=== PATIENT | female | born 1940 | race Caucasian/White ===

== ENCOUNTER 2023-03-25 00:34 | Emergency (ER) | payer MEDICARE, OTHER ==
[~2023-03-25] VITALS: Ht 157.5 cm; Wt 55.0 kg
[2023-03-25 00:59] LABS: BASO % 0.2 % (0.0-1.0); HEMATOCRIT 36.9 % (36.0-47.0); HEMOGLOBIN 12.3 g/dl (12.0-15.5); LYMPH # 0.4 10^3/uL (1.5-5.0); LYMPH % 3.4 % (24.0-44.0); MEAN CORPUSCULAR HEMOGLOBIN 30.7 pg (27.0-33.0); MEAN CORPUSCULAR HGB CONC 33.3 g/dl (32.0-36.5); MONO # 0.4 10^3/uL (0.0-0.8); MONO % 2.9 % (2.0-8.0); NEUTROPHILS # 11.7 10^3/uL (1.5-8.5); NEUTROPHILS % 93.2 % (36.0-66.0); PLATELET COUNT, AUTOMATED 257 10^3/uL (150-450); RED BLOOD COUNT 4.01 10^6/uL (4.00-5.40); WHITE BLOOD COUNT 12.5 10^3/uL (4.0-10.0)
[2023-03-25] MEDS ORDERED: hydrALAZINE 20MG/ML 1ML VIAL IV STA (01:13)
[2023-03-25 01:14] LABS: INR 1.28; PROTHROMBIN TIME 15.6 SECONDS (12.5-14.5)
[2023-03-25 01:15] LABS: PARTIAL THROMBOPLASTIN TIME 25.5 SECONDS (24.8-34.2)
[2023-03-25 01:22] VITALS: BP 180/105
[2023-03-25] MEDS: niCARdipine IV 40 MG in IV 1 EA IV SCH ×2 (01:24→01:47)
[2023-03-25 01:25] LABS: CALCIUM LEVEL 9.2 MG/DL (8.3-10.6); CK-MB VALUE MASS 2.6 NG/ML (<3.6); CREATININE FOR GFR 1.62 MG/DL (0.55-1.30); GLOMERULAR FILTRATION RATE 32.2 (>32); MB/CK RELATIVE INDEX 2.04 (< OR =4); POTASSIUM SERUM 4.6 MMOL/L (3.5-5.1)
[2023-03-25] MEDS ORDERED: TENECTEPLASE 50 MG KIT (TNKase) IVP ONE (01:30)
[2023-03-25 01:51] VITALS: BP 163/85; TEMP 98.1; O2SAT 93
[2023-03-25] MEDS ORDERED: NS 1,000 ML IV ONE (01:55)
[2023-03-25 01:57] VITALS: BP 153/60; TEMP 98; O2SAT 94
[2023-03-25 02:13] VITALS: BP 131/79; TEMP 97.9; O2SAT 94
[2023-03-25 02:30] VITALS: BP 131/77; TEMP 98; O2SAT 95
[2023-03-25] MEDS ORDERED: SODIUM CHLORIDE 0.9% INJ 10 ML SYR IV ONE ×2 (06:00)
[2023-03-26] MEDS ORDERED: UNRESOLVED CLARIFICATION ENTRY XX SCH (00:01)
== END 2023-03-25 02:37 | disposition short-term general hospital (02) ==
LOC: M ED 00:34
DX: I63.9 Cerebral infarction, unspecified (principal); I65.22 Occlusion and stenosis of left carotid artery; I66.9 Occlusion and stenosis of unspecified cerebral artery; G93.89 Other specified disorders of brain; I10 Essential (primary) hypertension
CPT/HCPCS: 70450; 70496; 70498; 71045; 80047; 80048; 82550; 82553; 84484; 85025; 85610; 85730; 87486; 87581; 87633; 87798; 93005; 93041; 94760; 96365; 96375; 99284; J0360; J3101

== ENCOUNTER → 2023-04-24 | Outpatient (REF) | payer SELFPAY ==
[2023-04-24 09:45] LABS: BASO # 0.1 10^3/uL (0.0-0.2); BASO % 0.5 % (0.0-1.0); EOS # 0.5 10^3/uL (0.0-0.5); EOS % 4.8 % (0.0-3.0); HEMATOCRIT 30.1 % (36.0-47.0); HEMOGLOBIN 9.8 g/dl (12.0-15.5); LYMPH # 0.7 10^3/uL (1.5-5.0); LYMPH % 6.5 % (24.0-44.0); MEAN CORPUSCULAR HEMOGLOBIN 31.3 pg (27.0-33.0); MEAN CORPUSCULAR HGB CONC 32.6 g/dl (32.0-36.5); MEAN CORPUSCULAR VOLUME 96.2 fl (80.0-96.0); MONO # 0.5 10^3/uL (0.0-0.8); MONO % 4.4 % (2.0-8.0); NEUTROPHILS % 83.2 % (36.0-66.0); PLATELET COUNT, AUTOMATED 411 10^3/uL (150-450); RED BLOOD COUNT 3.13 10^6/uL (4.00-5.40); WHITE BLOOD COUNT 10.8 10^3/uL (4.0-10.0)
[2023-04-24 10:18] LABS: ALBUMIN 1.6 G/DL (3.2-5.2); ALKALINE PHOSPHATASE 179 U/L (46-116); ALT/SGPT 14 U/L (7.0-40); AST/SGOT 38 U/L (<34); BILIRUBIN,TOTAL < 0.2 MG/DL (0.3-1.2); BLOOD UREA NITROGEN 36 MG/DL (9-23); CALCIUM LEVEL 9.1 MG/DL (8.3-10.6); CARBON DIOXIDE LEVEL 30 MMOL/L (20-31); CHLORIDE LEVEL 104 MMOL/L (98-107); CHOLESTEROL LEVEL 110 MG/DL (<200); CHOLESTEROL RISK RATIO 2.98 (<5); CREATININE FOR GFR 1.29 MG/DL (0.55-1.30); GLOMERULAR FILTRATION RATE 41.9 (>32); GLUCOSE, FASTING 131 MG/DL (74-106); HDL CHOLESTEROL 36.8 MG/DL (>40); IRON (FE) 48 UG/DL (50-170); LDL CHOLESTEROL 56.8 MG/DL (<100); NON-HDL-C 73.2 MG/DL; PERCENT SATURATION 20.2 % (13.2-45.0); POTASSIUM SERUM 4.6 MMOL/L (3.5-5.1); SODIUM LEVEL 137 MMOL/L (136-145); TOTAL IRON BINDING CAPACITY 238 UG/DL (250-425); TOTAL PROTEIN 4.9 G/DL (5.7-8.2); TRIGLYCERIDES LEVEL 82 MG/DL (<150)
[2023-04-24 10:20] LABS: FERRITIN 170.5 NG/ML (7.3-270.7)
== END ==
LOC: SKLAB4 07:51
PROVIDERS: ATTEND Nurse Practitioner Family
DX: I10 Essential (primary) hypertension (principal); E78.5 Hyperlipidemia, unspecified

== ENCOUNTER → 2023-05-01 | Outpatient (REF) ==
[2023-05-01 13:38] LABS: AMORPHOUS SEDIMENT LARGE (NEGATIVE); APPEARANCE, URINE TURBID (CLEAR); BACTERIA, URINE AUTO 3+ (NEGATIVE); BILIRUBIN, URINE AUTO NEGATIVE (NEGATIVE); BLOOD, URINE BLOOD 3+ (NEGATIVE); COLOR, URINE YELLOW (YELLOW); GLUCOSE, URINE (UA) AUTO NEGATIVE (NEGATIVE); KETONE, URINE AUTO NEGATIVE (NEGATIVE); LEUKOCYTE ESTERASE, URINE AUTO 2+ (NEGATIVE); MUCUS, URINE SMALL (NEGATIVE); NITRITE, URINE AUTO NEGATIVE (NEGATIVE); PROTEIN, URINE AUTO 2+ mg/dL (NEGATIVE); RBC, URINE AUTO 53 /HPF (0-3); SPECIFIC GRAVITY URINE AUTO 1.014 (1.002-1.035); SQUAMOUS EPITHELIAL CELL UR AU 0 /HPF (0-6); UROBILINOGEN, URINE AUTO 0.2 mg/dL (0.0-2.0); WBC, URINE AUTO TNTC /HPF (0-3)
== END ==
LOC: SKLAB4 12:06
PROVIDERS: ATTEND Nurse Practitioner Family
DX: R91.8 Other nonspecific abnormal finding of lung field (principal); R06.02 Shortness of breath; D72.829 Elevated white blood cell count, unspecified

== ENCOUNTER → 2023-05-01 | Outpatient (REF) ==
[2023-05-01 09:17] LABS: BASO % 0.3 % (0.0-1.0); EOS # 0.4 10^3/uL (0.0-0.5); EOS % 3.3 % (0.0-3.0); HEMATOCRIT 25.1 % (36.0-47.0); HEMOGLOBIN 8.3 g/dl (12.0-15.5); LYMPH # 0.7 10^3/uL (1.5-5.0); LYMPH % 5.4 % (24.0-44.0); MEAN CORPUSCULAR HEMOGLOBIN 31.6 pg (27.0-33.0); MEAN CORPUSCULAR HGB CONC 33.1 g/dl (32.0-36.5); MEAN CORPUSCULAR VOLUME 95.4 fl (80.0-96.0); MONO # 0.8 10^3/uL (0.0-0.8); NEUTROPHILS # 10.8 10^3/uL (1.5-8.5); NEUTROPHILS % 84.5 % (36.0-66.0); PLATELET COUNT, AUTOMATED 344 10^3/uL (150-450); RED BLOOD COUNT 2.63 10^6/uL (4.00-5.40); WHITE BLOOD COUNT 12.8 10^3/uL (4.0-10.0)
[2023-05-01 09:40] LABS: ALBUMIN 1.6 G/DL (3.2-5.2); BILIRUBIN,TOTAL 0.2 MG/DL (0.3-1.2); CALCIUM LEVEL 8.8 MG/DL (8.3-10.6); CREATININE FOR GFR 1.22 MG/DL (0.55-1.30); GLOMERULAR FILTRATION RATE 44.7 (>32); POTASSIUM SERUM 4.1 MMOL/L (3.5-5.1); TOTAL PROTEIN 4.7 G/DL (5.7-8.2)
== END ==
LOC: SKLAB4 09:41
PROVIDERS: ATTEND Nurse Practitioner Family
DX: R25.1 Tremor, unspecified (principal); D64.9 Anemia, unspecified; I48.91 Unspecified atrial fibrillation

== ENCOUNTER 2023-05-02 07:05 | Outpatient (CLI) | payer MEDICARE ==
[2023-05-02 07:37] VITALS: BP 144/76; TEMP 97.5; O2SAT 96
[2023-05-02 08:00] VITALS: BP 128/76; TEMP 97.7; O2SAT 98
[2023-05-02 09:12] VITALS: BP 132/86; TEMP 98; O2SAT 99
[2023-05-02 09:45] VITALS: BP 139/88; TEMP 97.4; O2SAT 97
[2023-05-02 11:00] VITALS: BP 156/88; TEMP 98; O2SAT 97
[2023-05-02 12:22] VITALS: BP 136/86; TEMP 98.2; O2SAT 98
== END 2023-05-02 11:18 ==
LOC: M INFU 07:05
PROVIDERS: ATTEND Nurse Practitioner Family
DX: D64.9 Anemia, unspecified (principal); R19.5 Other fecal abnormalities
CPT/HCPCS: 36430; 82270; P9016

== ENCOUNTER → 2023-05-03 | Outpatient (REF) ==
[2023-05-03 12:49] LABS: HEMATOCRIT 33.3 % (36.0-47.0); HEMOGLOBIN 11.2 g/dl (12.0-15.5); MEAN CORPUSCULAR HEMOGLOBIN 30.7 pg (27.0-33.0); MEAN CORPUSCULAR HGB CONC 33.6 g/dl (32.0-36.5); MEAN CORPUSCULAR VOLUME 91.2 fl (80.0-96.0); PLATELET COUNT, AUTOMATED 401 10^3/uL (150-450); RED BLOOD COUNT 3.65 10^6/uL (4.00-5.40); WHITE BLOOD COUNT 9.9 10^3/uL (4.0-10.0)
== END ==
LOC: SKLAB4 07:00
PROVIDERS: ATTEND Nurse Practitioner Family
DX: D64.9 Anemia, unspecified (principal)

== ENCOUNTER 2023-05-06 19:07 | Emergency (ER) | payer MEDICARE ==
[2023-05-06 20:43] LABS: CK-MB VALUE MASS 1.7 NG/ML (<3.6)
[2023-05-06 20:45] VITALS: BP 167/79
[2023-05-06 20:47] LABS: THYROID STIMULATING HORMONE 13.798 uIU/ML (0.55-4.78)
[2023-05-06 20:48] LABS: ALBUMIN 1.8 G/DL (3.2-5.2); ALKALINE PHOSPHATASE 199 U/L (46-116); ALT/SGPT 13 U/L (7.0-40); AST/SGOT 39 U/L (<34); BILIRUBIN,DIRECT < 0.1 MG/DL (<0.4); BILIRUBIN,TOTAL 0.2 MG/DL (0.3-1.2); BLOOD UREA NITROGEN 43 MG/DL (9-23); CALCIUM LEVEL 9.1 MG/DL (8.3-10.6); CARBON DIOXIDE LEVEL 27 MMOL/L (20-31); CHLORIDE LEVEL 96 MMOL/L (98-107); CPK CREATINE PHOSPHOKINASE 51 U/L (34-145); CREATININE FOR GFR 0.93 MG/DL (0.55-1.30); GLOMERULAR FILTRATION RATE > 60.0 (>32); GLUCOSE, FASTING 124 MG/DL (74-106); MB/CK RELATIVE INDEX 3.33 (< OR =4); POTASSIUM SERUM 4.6 MMOL/L (3.5-5.1); SODIUM LEVEL 127 MMOL/L (136-145); TOTAL PROTEIN 5.4 G/DL (5.7-8.2)
[2023-05-06 21:25] LABS: RSV AMPLIFICATION NEGATIVE (NEGATIVE)
[2023-05-06 21:27] LABS: BASO # 0.1 10^3/uL (0.0-0.2); BASO % 0.4 % (0.0-1.0); EOS # 0.4 10^3/uL (0.0-0.5); EOS % 3.3 % (0.0-3.0); HEMATOCRIT 32.6 % (36.0-47.0); HEMOGLOBIN 11.2 g/dl (12.0-15.5); LYMPH # 0.7 10^3/uL (1.5-5.0); LYMPH % 5.4 % (24.0-44.0); MEAN CORPUSCULAR HEMOGLOBIN 31.2 pg (27.0-33.0); MEAN CORPUSCULAR HGB CONC 34.4 g/dl (32.0-36.5); MEAN CORPUSCULAR VOLUME 90.8 fl (80.0-96.0); MONO % 7.1 % (2.0-8.0); NEUTROPHILS # 11.1 10^3/uL (1.5-8.5); NEUTROPHILS % 83.3 % (36.0-66.0); RED BLOOD COUNT 3.59 10^6/uL (4.00-5.40); WHITE BLOOD COUNT 13.4 10^3/uL (4.0-10.0)
[2023-05-06 21:28] LABS: PLATELET COUNT, AUTOMATED 550 10^3/uL (150-450)
[2023-05-06 21:51] LABS: FREE T4 0.99 NG/DL (0.89-1.76)
[2023-05-06] MEDS ORDERED: ISOVUE-370 76% 100ML VIAL As Ordered ONE (22:10)
[2023-05-06 22:32] LABS: PROCALCITONIN 0.26 ng/ml
[2023-05-06 22:53] LABS: CK-MB VALUE MASS 2.1 NG/ML (<3.6)
[2023-05-06 22:56] LABS: MB/CK RELATIVE INDEX 4.88 (< OR =4)
[2023-05-06 23:30] VITALS: TEMP 97.7; O2SAT 98
== END 2023-05-07 00:15 | disposition home or self-care (01) ==
LOC: M ED 19:07
DX: J98.11 Atelectasis (principal); I48.91 Unspecified atrial fibrillation; I49.3 Ventricular premature depolarization; E78.5 Hyperlipidemia, unspecified; K21.9 Gastro-esophageal reflux disease without esophagitis; Z86.79 Personal history of other diseases of the circulatory system; Z96.0 Presence of urogenital implants
CPT/HCPCS: 36415; 70450; 71045; 71275; 80048; 80076; 81001; 82550; 82553; 83605; 84145; 84439; 84443; 84484; 85025; 87086; 87631; 93005; 93041; 94760; 99285; Q9967

== ENCOUNTER → 2023-05-06 | Outpatient (REF) ==
[2023-05-06 17:12] LABS: VENOUS O2 SATURATION 99.3 % (60.0-80.0); VENOUS PARTIAL PRESSURE CO2 37.8 mmHg (38.0-50.0); VENOUS PARTIAL PRESSURE O2 156.9 mmHg (30.0-50.0); VENOUS PH 7.439 UNITS (7.330-7.430); VENOUS STANDARD HCO3 25.4 MMOL/L; VENOUS TOTAL CO2 26.2 MMOL/L (24.0-28.0)
[2023-05-06 17:43] LABS: ALBUMIN 1.6 G/DL (3.2-5.2); BILIRUBIN,TOTAL 0.2 MG/DL (0.3-1.2); CREATININE FOR GFR 0.97 MG/DL (0.55-1.30); GLOMERULAR FILTRATION RATE 58.2 (>32); POTASSIUM SERUM 4.3 MMOL/L (3.5-5.1); TOTAL PROTEIN 4.8 G/DL (5.7-8.2)
== END ==
LOC: SKLAB4 15:27
PROVIDERS: ATTEND Nurse Practitioner Family
DX: I10 Essential (primary) hypertension (principal)

== ENCOUNTER → 2023-05-06 | Outpatient (REF) | LOC: SKLAB4 15:03 | PROVIDERS: ATTEND Nurse Practitioner Family | DX: J90 Pleural effusion, not elsewhere classified (principal); I51.7 Cardiomegaly ==

== ENCOUNTER → 2023-05-06 | Outpatient (REF) ==
[2023-05-06 08:33] LABS: HEMATOCRIT 33.1 % (36.0-47.0); HEMOGLOBIN 11.1 g/dl (12.0-15.5); MEAN CORPUSCULAR HEMOGLOBIN 30.8 pg (27.0-33.0); MEAN CORPUSCULAR HGB CONC 33.5 g/dl (32.0-36.5); MEAN CORPUSCULAR VOLUME 91.9 fl (80.0-96.0); PLATELET COUNT, AUTOMATED 405 10^3/uL (150-450); WHITE BLOOD COUNT 12.9 10^3/uL (4.0-10.0)
== END ==
LOC: SKLAB4 08:37
PROVIDERS: ATTEND Nurse Practitioner Family
DX: D64.9 Anemia, unspecified (principal)

== ENCOUNTER → 2023-05-08 | Outpatient (REF) ==
[~2023-05-08] MED LIST: ACET-897 PEG; AMAN100T GT; BISA10SU4 PR; DILT120T PEG; ELIQ2.5T GT; FERR1ELX PEG; GABA-1171 GT; LEVO50TA5 GT; MILKSUS3 PO; NEBI5TAB GT; PROTPAK GT; SERT25TA21 PEG; SUCR1SS GT
== END ==
LOC: SKLAB4 11:26
PROVIDERS: ATTEND Nurse Practitioner Family
DX: R94.09 Abnormal results of other function studies of central nervous system (principal)

== ENCOUNTER → 2023-05-08 | Outpatient (REF) ==
[2023-05-08 09:27] LABS: BASO # 0.1 10^3/uL (0.0-0.2); BASO % 0.7 % (0.0-1.0); EOS # 0.4 10^3/uL (0.0-0.5); EOS % 3.5 % (0.0-3.0); HEMATOCRIT 29.6 % (36.0-47.0); LYMPH # 0.7 10^3/uL (1.5-5.0); LYMPH % 6.4 % (24.0-44.0); MEAN CORPUSCULAR HGB CONC 33.8 g/dl (32.0-36.5); MEAN CORPUSCULAR VOLUME 91.6 fl (80.0-96.0); MONO # 0.8 10^3/uL (0.0-0.8); NEUTROPHILS # 9.2 10^3/uL (1.5-8.5); NEUTROPHILS % 81.7 % (36.0-66.0); PLATELET COUNT, AUTOMATED 454 10^3/uL (150-450); RED BLOOD COUNT 3.23 10^6/uL (4.00-5.40); WHITE BLOOD COUNT 11.2 10^3/uL (4.0-10.0)
[2023-05-08 09:55] LABS: ALBUMIN 1.7 G/DL (3.2-5.2); BILIRUBIN,TOTAL 0.2 MG/DL (0.3-1.2); CALCIUM LEVEL 9.3 MG/DL (8.3-10.6); CREATININE FOR GFR 1.02 MG/DL (0.55-1.30); POTASSIUM SERUM 4.6 MMOL/L (3.5-5.1); TOTAL PROTEIN 5.1 G/DL (5.7-8.2)
== END ==
LOC: SKLAB4 11:22
PROVIDERS: ATTEND Nurse Practitioner Family
DX: I48.91 Unspecified atrial fibrillation (principal)

== ENCOUNTER → 2023-05-10 | Outpatient (REF) ==
[2023-05-10 09:12] LABS: CALCIUM LEVEL 9.6 MG/DL (8.3-10.6); CREATININE FOR GFR 1.01 MG/DL (0.55-1.30); GLOMERULAR FILTRATION RATE 55.6 (>32); POTASSIUM SERUM 4.5 MMOL/L (3.5-5.1)
[2023-05-10 10:14] LABS: HEMATOCRIT 29.7 % (36.0-47.0); HEMOGLOBIN 9.9 g/dl (12.0-15.5); MEAN CORPUSCULAR HEMOGLOBIN 30.8 pg (27.0-33.0); MEAN CORPUSCULAR HGB CONC 33.3 g/dl (32.0-36.5); MEAN CORPUSCULAR VOLUME 92.5 fl (80.0-96.0); PLATELET COUNT, AUTOMATED 527 10^3/uL (150-450); RED BLOOD COUNT 3.21 10^6/uL (4.00-5.40); WHITE BLOOD COUNT 12.4 10^3/uL (4.0-10.0)
== END ==
LOC: SKLAB4 10:57
PROVIDERS: ATTEND Nurse Practitioner Family
DX: D64.9 Anemia, unspecified (principal)

== ENCOUNTER → 2023-05-22 | Outpatient (REF) ==
[2023-05-22 07:37] LABS: BASO # 0.1 10^3/uL (0.0-0.2); BASO % 0.6 % (0.0-1.0); EOS # 0.6 10^3/uL (0.0-0.5); EOS % 5.9 % (0.0-3.0); HEMATOCRIT 23.4 % (36.0-47.0); HEMOGLOBIN 7.8 g/dl (12.0-15.5); LYMPH # 0.6 10^3/uL (1.5-5.0); LYMPH % 6.5 % (24.0-44.0); MEAN CORPUSCULAR HEMOGLOBIN 30.8 pg (27.0-33.0); MEAN CORPUSCULAR HGB CONC 33.3 g/dl (32.0-36.5); MEAN CORPUSCULAR VOLUME 92.5 fl (80.0-96.0); MONO # 0.8 10^3/uL (0.0-0.8); MONO % 8.5 % (2.0-8.0); NEUTROPHILS # 7.6 10^3/uL (1.5-8.5); NEUTROPHILS % 77.6 % (36.0-66.0); PLATELET COUNT, AUTOMATED 483 10^3/uL (150-450); RED BLOOD COUNT 2.53 10^6/uL (4.00-5.40); WHITE BLOOD COUNT 9.8 10^3/uL (4.0-10.0)
[2023-05-22 08:08] LABS: ALBUMIN 1.5 G/DL (3.2-5.2); ALKALINE PHOSPHATASE 183 U/L (46-116); ALT/SGPT 56 U/L (7.0-40); AST/SGOT 38 U/L (<34); BILIRUBIN,TOTAL < 0.2 MG/DL (0.3-1.2); BLOOD UREA NITROGEN 59 MG/DL (9-23); CALCIUM LEVEL 8.7 MG/DL (8.3-10.6); CARBON DIOXIDE LEVEL 28 MMOL/L (20-31); CHLORIDE LEVEL 99 MMOL/L (98-107); CREATININE FOR GFR 1.03 MG/DL (0.55-1.30); GLOMERULAR FILTRATION RATE 54.3 (>32); GLUCOSE, FASTING 145 MG/DL (74-106); POTASSIUM SERUM 4.1 MMOL/L (3.5-5.1); SODIUM LEVEL 131 MMOL/L (136-145); TOTAL PROTEIN 4.6 G/DL (5.7-8.2)
[2023-05-22 08:10] LABS: THYROID STIMULATING HORMONE 15.887 uIU/ML (0.55-4.78)
== END ==
LOC: SKLAB4 09:21
PROVIDERS: ATTEND Nurse Practitioner Family
DX: E03.9 Hypothyroidism, unspecified (principal); R06.02 Shortness of breath; I10 Essential (primary) hypertension

== ENCOUNTER → 2023-05-22 | Outpatient (REF) ==
[2023-05-22 15:32] LABS: INR 1.41; PROTHROMBIN TIME 16.8 SECONDS (12.5-14.5)
[2023-05-22 15:57] LABS: ALBUMIN 1.7 G/DL (3.2-5.2); ALKALINE PHOSPHATASE 188 U/L (46-116); ALT/SGPT 65 U/L (7.0-40); AST/SGOT 38 U/L (<34); BILIRUBIN,DIRECT < 0.1 MG/DL (<0.4); BILIRUBIN,TOTAL < 0.2 MG/DL (0.3-1.2); TOTAL PROTEIN 5.2 G/DL (5.7-8.2)
== END ==
LOC: SKLAB4 14:22
PROVIDERS: ATTEND Nurse Practitioner Family
DX: D64.9 Anemia, unspecified (principal); K92.2 Gastrointestinal hemorrhage, unspecified

== ENCOUNTER 2023-05-23 09:43 | Outpatient (CLI) | payer MEDICARE, BC ==
[~2023-05-23] VITALS: Ht 162.6 cm; Wt 55.9 kg
[2023-05-23] VITALS (8 sets, daily range): BP systolic 89–124; BP diastolic 55–66; TEMP 98–99; O2SAT 95–98
== END 2023-05-23 14:30 ==
LOC: M INFU 09:43
PROVIDERS: ATTEND Nurse Practitioner Family
DX: D64.9 Anemia, unspecified (principal)
CPT/HCPCS: 36430; 82270; P9016

== ENCOUNTER → 2023-05-23 | Outpatient (CLI) | payer MEDICARE, BC | LOC: SKLAB4 05:30 | PROVIDERS: ATTEND Internal Medicine | DX: D64.9 Anemia, unspecified (principal) ==

== ENCOUNTER → 2023-05-27 | Outpatient (REF) | payer BC, MEDICARE | LOC: SKLAB4 08:32 | PROVIDERS: ATTEND Nurse Practitioner Family | DX: Z53.8 Procedure and treatment not carried out for other reasons (principal) ==

== ENCOUNTER → 2023-05-27 | Outpatient (REF) ==
[2023-05-27 07:41] LABS: HEMOGLOBIN 11.5 g/dl (12.0-15.5); MEAN CORPUSCULAR HEMOGLOBIN 28.9 pg (27.0-33.0); MEAN CORPUSCULAR HGB CONC 32.9 g/dl (32.0-36.5); MEAN CORPUSCULAR VOLUME 87.9 fl (80.0-96.0); PLATELET COUNT, AUTOMATED 413 10^3/uL (150-450); RED BLOOD COUNT 3.98 10^6/uL (4.00-5.40); WHITE BLOOD COUNT 12.8 10^3/uL (4.0-10.0)
== END ==
LOC: SKLAB4 08:32
PROVIDERS: ATTEND Nurse Practitioner Family
DX: D64.9 Anemia, unspecified (principal)

== ENCOUNTER → 2023-05-28 | Outpatient (REF) ==
[2023-05-28 13:25] LABS: HEMATOCRIT 32.9 % (36.0-47.0); HEMOGLOBIN 10.8 g/dl (12.0-15.5); MEAN CORPUSCULAR HEMOGLOBIN 28.7 pg (27.0-33.0); MEAN CORPUSCULAR HGB CONC 32.8 g/dl (32.0-36.5); MEAN CORPUSCULAR VOLUME 87.5 fl (80.0-96.0); PLATELET COUNT, AUTOMATED 414 10^3/uL (150-450); RED BLOOD COUNT 3.76 10^6/uL (4.00-5.40); WHITE BLOOD COUNT 11.3 10^3/uL (4.0-10.0)
[2023-05-28 13:49] LABS: CALCIUM LEVEL 9.5 MG/DL (8.3-10.6); GLOMERULAR FILTRATION RATE 56.2 (>32); POTASSIUM SERUM 4.6 MMOL/L (3.5-5.1)
== END ==
LOC: SKLAB4 12:30
PROVIDERS: ATTEND Nurse Practitioner Family
DX: E87.1 Hypo-osmolality and hyponatremia (principal); D64.9 Anemia, unspecified

== ENCOUNTER → 2023-05-29 | Outpatient (REF) ==
[2023-05-29 11:58] LABS: HEMOGLOBIN 11.9 g/dl (12.0-15.5); MEAN CORPUSCULAR HEMOGLOBIN 29.2 pg (27.0-33.0); MEAN CORPUSCULAR HGB CONC 33.1 g/dl (32.0-36.5); MEAN CORPUSCULAR VOLUME 88.2 fl (80.0-96.0); PLATELET COUNT, AUTOMATED 498 10^3/uL (150-450); RED BLOOD COUNT 4.08 10^6/uL (4.00-5.40); WHITE BLOOD COUNT 13.3 10^3/uL (4.0-10.0)
[2023-05-29 12:29] LABS: ALBUMIN 1.9 G/DL (3.2-5.2); BILIRUBIN,TOTAL 0.2 MG/DL (0.3-1.2); CALCIUM LEVEL 10.1 MG/DL (8.3-10.6); CREATININE FOR GFR 1.08 MG/DL (0.55-1.30); GLOMERULAR FILTRATION RATE 51.5 (>32); POTASSIUM SERUM 4.6 MMOL/L (3.5-5.1); TOTAL PROTEIN 5.5 G/DL (5.7-8.2)
== END ==
LOC: SKLAB4 12:42
PROVIDERS: ATTEND Nurse Practitioner Family
DX: I10 Essential (primary) hypertension (principal)

== ENCOUNTER 2023-05-31 06:08 | Inpatient (IN) | payer MEDICARE, BC ==
[2023-05-31] VITALS (13 sets, daily range): BP systolic 93–145; BP diastolic 57–87; TEMP 96.9–101.3; O2SAT 94–100
[~2023-05-31] VITALS: Ht 165.1 cm; Wt 56.2 kg
[2023-05-31] MEDS: IPRATROPIUM 0.5MG/ALBUTEROL 2.5MG INH SOL UD 3ML (DUONEB) NEB PRN (06:27)
[2023-05-31 06:33] LABS: ABG BASE EXCESS -3.2 (-2.0-2.0); ABG HCO3 24.2 MMOL/L (22.0-26.0); ABG O2 SATURATION 79.6 % (95.0-99.0); ABG PARTIAL PRESSURE CO2 53.3 mmHg (35.0-45.0); ABG STANDARD HCO3 21.4 MMOL/L. (22.0-26.0); ABG TOTAL CO2 25.8 MMOL/L (23.0-31.0); ABG pH (ARTERIAL) 7.275 UNITS (7.350-7.450)
[2023-05-31 06:37] LABS: ABG PARTIAL PRESSURE O2 48.7 mmHg (75.0-100.0)
[2023-05-31 06:46] LABS: BASO # 0.2 10^3/uL (0.0-0.2); BASO % 0.4 % (0.0-1.0); EOS # 0.1 10^3/uL (0.0-0.5); EOS % 0.2 % (0.0-3.0); HEMATOCRIT 43.5 % (36.0-47.0); HEMOGLOBIN 13.7 g/dl (12.0-15.5); LYMPH # 1.4 10^3/uL (1.5-5.0); LYMPH % 3.2 % (24.0-44.0); MEAN CORPUSCULAR HEMOGLOBIN 28.5 pg (27.0-33.0); MEAN CORPUSCULAR HGB CONC 31.5 g/dl (32.0-36.5); MEAN CORPUSCULAR VOLUME 90.4 fl (80.0-96.0); MONO # 1.7 10^3/uL (0.0-0.8); MONO % 3.8 % (2.0-8.0); NEUTROPHILS # 40.5 10^3/uL (1.5-8.5); NEUTROPHILS % 91.6 % (36.0-66.0); PLATELET COUNT, AUTOMATED 762 10^3/uL (150-450); RED BLOOD COUNT 4.81 10^6/uL (4.00-5.40)
[2023-05-31 06:48] LABS: WHITE BLOOD COUNT 44.2 10^3/uL (4.0-10.0)
[2023-05-31 07:11] LABS: ALBUMIN 2.4 G/DL (3.2-5.2); BILIRUBIN,DIRECT 0.1 MG/DL (<0.4); BILIRUBIN,TOTAL 0.3 MG/DL (0.3-1.2); CALCIUM LEVEL 10.7 MG/DL (8.3-10.6); CK-MB VALUE MASS 2.2 NG/ML (<3.6); CREATININE FOR GFR 1.07 MG/DL (0.55-1.30); MB/CK RELATIVE INDEX 3.49 (< OR =4); POTASSIUM SERUM 5.1 MMOL/L (3.5-5.1); TOTAL PROTEIN 6.9 G/DL (5.7-8.2)
[2023-05-31] MEDS: FUROSEMIDE 100MG/10ML VIAL IV ONE (07:15)
[2023-05-31] MEDS: PIPERACILLIN/TAZOBACTAM SOD 4.5 GM in D5W MINI-BAG PLUS 50 ML IV ONE (07:23)
[2023-05-31] MEDS ORDERED: ISOVUE-370 76% 100ML VIAL As Ordered ONE (07:35)
[2023-05-31] MEDS ORDERED: LEVO50TA5 GT (07:45)
[2023-05-31] MEDS ORDERED: DILT120T PEG (07:45)
[2023-05-31] MEDS ORDERED: ACET-897 PEG (07:45)
[2023-05-31] MEDS ORDERED: NEBI5TAB GT (07:45)
[2023-05-31] MEDS ORDERED: SUCR1SS GT (07:45)
[2023-05-31] MEDS ORDERED: MILKSUS3 PO (07:45)
[2023-05-31] MEDS ORDERED: AMAN100T GT (07:45)
[2023-05-31] MEDS ORDERED: BISA10SU4 PR (07:45)
[2023-05-31] MEDS ORDERED: FERR1ELX PEG (07:45)
[2023-05-31] MEDS ORDERED: SERT25TA21 PEG (07:45)
[2023-05-31] MEDS ORDERED: ELIQ2.5T GT (07:45)
[2023-05-31] MEDS ORDERED: PROTPAK GT (07:45)
[2023-05-31] MEDS ORDERED: GABA-1171 GT (07:45)
[2023-05-31] MEDS ORDERED: HOME MED LIST COMPLETE! XX SCH (07:50)
[2023-05-31 08:11] LABS: CK-MB VALUE MASS 2.4 NG/ML (<3.6); MB/CK RELATIVE INDEX 3.8 (< OR =4)
[2023-05-31] MEDS ORDERED: PANTOPRAZOLE 40MG TAB (PROTONIX) PO SCH (09:00)
[2023-05-31] MEDS ORDERED: SUCRALFATE SUSP 1GM/10ML UD PO SCH (09:00)
[2023-05-31] MEDS ORDERED: MIRALAX *UNIT DOSE* 17GM PACKET PO SCH (09:00)
[2023-05-31 10:05] LABS: ABG BASE EXCESS -1.8 (-2.0-2.0); ABG HCO3 22.4 MMOL/L (22.0-26.0); ABG O2 SATURATION 93.7 % (95.0-99.0); ABG PARTIAL PRESSURE CO2 36.5 mmHg (35.0-45.0); ABG PARTIAL PRESSURE O2 66.6 mmHg (75.0-100.0); ABG STANDARD HCO3 22.9 MMOL/L. (22.0-26.0); ABG TOTAL CO2 23.5 MMOL/L (23.0-31.0); ABG pH (ARTERIAL) 7.406 UNITS (7.350-7.450)
[2023-05-31] MEDS: PANTOPRAZOLE 40MG VIAL IV SCH (11:27)
[2023-05-31] MEDS: APIXABAN 2.5 MG TAB (ELIQUIS) PEG SCH (11:27)
[2023-05-31] MEDS: NS 1,000 ML IV SCH (11:30)
[2023-05-31] MEDS: IPRATROPIUM 0.5MG/ALBUTEROL 2.5MG INH SOL UD 3ML (DUONEB) NEB SCH (11:34)
[2023-05-31] MEDS: NS 500 ML IV ONE (12:08)
[2023-05-31] MEDS: dilTIAZem 60 MG TAB PEG ONE (13:01)
[2023-05-31] MEDS: AZITHROMYCIN SUSP 200MG/5ML 30ML BOTTLE PEG SCH (13:01)
[2023-05-31 13:56] LABS: APPEARANCE, URINE CLEAR (CLEAR); BACTERIA, URINE AUTO NEGATIVE (NEGATIVE); BILIRUBIN, URINE AUTO NEGATIVE (NEGATIVE); BLOOD, URINE BLOOD NEGATIVE (NEGATIVE); COLOR, URINE STRAW (YELLOW); GLUCOSE, URINE (UA) AUTO NEGATIVE (NEGATIVE); KETONE, URINE AUTO NEGATIVE (NEGATIVE); LEUKOCYTE ESTERASE, URINE AUTO NEGATIVE (NEGATIVE); NITRITE, URINE AUTO NEGATIVE (NEGATIVE); PROTEIN, URINE AUTO NEGATIVE (NEGATIVE); RBC, URINE AUTO 1 /HPF (0-3); SPECIFIC GRAVITY URINE AUTO 1.013 (1.002-1.035); SQUAMOUS EPITHELIAL CELL UR AU 0 /HPF (0-6); UROBILINOGEN, URINE AUTO 0.2 mg/dL (0.0-2.0); WBC, URINE AUTO 1 /HPF (0-3)
[2023-05-31] MEDS ORDERED: PIPERACILLIN/TAZOBACTAM SOD 4.5 GM in D5W MINI-BAG PLUS 50 ML IV SCH (14:00)
[2023-05-31] MEDS: PIPERACILLIN/TAZOBACTAM SOD 3.375 GM in D5W MINI-BAG PLUS 50 ML IV SCH (14:53)
[2023-05-31] MEDS: ACETAMINOPHEN *IV* 1,000 MG in IV 1 EA IV ONE (20:02)
[2023-05-31] MEDS: MIRALAX *UNIT DOSE* 17GM PACKET PEG SCH (20:02)
[2023-05-31] MEDS: SUCRALFATE SUSP 1GM/10ML UD PEG SCH (20:02)
[2023-05-31] MEDS: dilTIAZem 60 MG TAB PEG SCH (22:07)
[2023-06-01] VITALS (22 sets, daily range): BP systolic 99–128; BP diastolic 54–74; TEMP 99.3–100.8; O2SAT 85–100
[2023-06-01 04:55] LABS: HEMATOCRIT 32.7 % (36.0-47.0); HEMOGLOBIN 10.7 g/dl (12.0-15.5); MEAN CORPUSCULAR HEMOGLOBIN 29.1 pg (27.0-33.0); MEAN CORPUSCULAR HGB CONC 32.7 g/dl (32.0-36.5); MEAN CORPUSCULAR VOLUME 88.9 fl (80.0-96.0); PLATELET COUNT, AUTOMATED 404 10^3/uL (150-450); RED BLOOD COUNT 3.68 10^6/uL (4.00-5.40); WHITE BLOOD COUNT 25.9 10^3/uL (4.0-10.0)
[2023-06-01 05:19] LABS: CK-MB VALUE MASS 1.9 NG/ML (<3.6)
[2023-06-01 05:21] LABS: ALBUMIN 1.7 G/DL (3.2-5.2); BILIRUBIN,TOTAL 0.6 MG/DL (0.3-1.2); CALCIUM LEVEL 10.2 MG/DL (8.3-10.6); CREATININE FOR GFR 1.66 MG/DL (0.55-1.30); GLOMERULAR FILTRATION RATE 31.3 (>32); MAGNESIUM LEVEL 1.8 MG/DL (1.8-2.4); MB/CK RELATIVE INDEX 4.22 (< OR =4); TOTAL PROTEIN 5.3 G/DL (5.7-8.2)
[2023-06-01 05:51] LABS: METAMYELOCYTES 2 % (0-0); MONOCYTES 2 % (0-5); NEUTROPHILS 89 % (28-66); PLATELET ESTIMATE NORMAL (NORMAL)
[2023-06-01 05:52] LABS: HYPOCHROMASIA 1+
[2023-06-01] MEDS: LEVOTHYROXINE 50MCG TABLET (0.05MG) PEG SCH (06:04)
[2023-06-01 06:06] LABS: ABG BASE EXCESS -0.7 (-2.0-2.0); ABG HCO3 22.1 MMOL/L (22.0-26.0); ABG O2 SATURATION 96.4 % (95.0-99.0); ABG PARTIAL PRESSURE CO2 30.1 mmHg (35.0-45.0); ABG PARTIAL PRESSURE O2 84.5 mmHg (75.0-100.0); ABG STANDARD HCO3 23.9 MMOL/L. (22.0-26.0); ABG pH (ARTERIAL) 7.483 UNITS (7.350-7.450)
[2023-06-01] MEDS ORDERED: AZITHROMYCIN INJ 500 MG, VIAL MATE ADAPTER 1 EACH in NS 250 ML IV SCH (09:00)
[2023-06-01 12:21] LABS: HEMATOCRIT 30.7 % (36.0-47.0); HEMOGLOBIN 10.1 g/dl (12.0-15.5); MEAN CORPUSCULAR HEMOGLOBIN 29.5 pg (27.0-33.0); MEAN CORPUSCULAR HGB CONC 32.9 g/dl (32.0-36.5); MEAN CORPUSCULAR VOLUME 89.8 fl (80.0-96.0); PLATELET COUNT, AUTOMATED 389 10^3/uL (150-450); RED BLOOD COUNT 3.42 10^6/uL (4.00-5.40); WHITE BLOOD COUNT 29.6 10^3/uL (4.0-10.0)
[2023-06-01 12:38] LABS: INR 1.94; PROTHROMBIN TIME 21.5 SECONDS (12.5-14.5)
[2023-06-01 12:46] LABS: THYROID STIMULATING HORMONE 10.372 uIU/ML (0.55-4.78)
[2023-06-01 12:56] LABS: ANISOCYTOSIS 1+; ATYPICAL LYMPH 1 % (0-5); LYMPHOCYTES 2 % (16-44); METAMYELOCYTES 2 % (0-0); MONOCYTES 3 % (0-5); MYELOCYTES 1 % (0-0); NEUTROPHILS 72 % (28-66)
[2023-06-01 13:10] LABS: PLATELET ESTIMATE NORMAL (NORMAL)
[2023-06-01] MEDS: ACETAMINOPHEN *IV* 1,000 MG in IV 1 EA IV ONE (16:47)
[2023-06-02] VITALS (13 sets, daily range): BP systolic 107–122; BP diastolic 62–72; TEMP 98.4–99.8; O2SAT 93–100
[2023-06-02 04:57] LABS: BASO # 0.1 10^3/uL (0.0-0.2); BASO % 0.3 % (0.0-1.0); EOS % 0.1 % (0.0-3.0); HEMATOCRIT 28.3 % (36.0-47.0); HEMOGLOBIN 9.5 g/dl (12.0-15.5); LYMPH # 0.5 10^3/uL (1.5-5.0); MEAN CORPUSCULAR HEMOGLOBIN 29.3 pg (27.0-33.0); MEAN CORPUSCULAR HGB CONC 33.6 g/dl (32.0-36.5); MEAN CORPUSCULAR VOLUME 87.3 fl (80.0-96.0); MONO # 0.8 10^3/uL (0.0-0.8); MONO % 3.4 % (2.0-8.0); NEUTROPHILS # 22.5 10^3/uL (1.5-8.5); PLATELET COUNT, AUTOMATED 384 10^3/uL (150-450); RED BLOOD COUNT 3.24 10^6/uL (4.00-5.40); WHITE BLOOD COUNT 24.1 10^3/uL (4.0-10.0)
[2023-06-02 05:10] LABS: INR 1.79; PROTHROMBIN TIME 20.2 SECONDS (12.5-14.5)
[2023-06-02 05:21] LABS: ALBUMIN 1.7 G/DL (3.2-5.2); BILIRUBIN,TOTAL 0.5 MG/DL (0.3-1.2); CREATININE FOR GFR 1.93 MG/DL (0.55-1.30); GLOMERULAR FILTRATION RATE 26.3 (>32); MAGNESIUM LEVEL 2.1 MG/DL (1.8-2.4); POTASSIUM SERUM 3.4 MMOL/L (3.5-5.1); TOTAL PROTEIN 5.4 G/DL (5.7-8.2)
[2023-06-02] MEDS: KCL 10MEQ/100ML SWI (KRUN) 100 ML IV SCH (06:24)
[2023-06-02] MEDS: FUROSEMIDE 100MG/10ML VIAL IV ONE (10:01)
[2023-06-02] MEDS: SCOPOLAMINE 1MG TRANSDERMAL PATCH TOP PRN (14:58)
[2023-06-02] MEDS ORDERED: MORPHINE SULF IN 0.9% NACL 100 MG in IV 1 EA IV SCH (16:00)
[2023-06-02] MEDS: MORPHINE 2 MG/ML 1ML VIAL IV PRN (17:33)
[2023-06-02] MEDS ORDERED: BISACODYL 10MG SUPP PR PRN (18:05)
[2023-06-02] MEDS ORDERED: MORPHINE 10MG/0.5ML ORAL CONCENTRATE SOLUTION U/D SL PRN (18:05)
[2023-06-02] MEDS ORDERED: LORazepam 2 MG/ML 1ML VIAL IV PRN (18:05)
[2023-06-02] MEDS: ATROPINE SULFATE 1% OPHTH SOLN 2ML BTL SL PRN (20:59)
[2023-06-02] MEDS: HYOSCYAMINE SULFATE 0.125 MG SUBL TABLET PO PRN (20:59)
[2023-06-02] MEDS: ONDANSETRON 4MG 2ML VIAL IV PRN (21:00)
[2023-06-03] MEDS: LORazepam 2 MG/ML 1ML VIAL IV PRN (05:42)
[2023-06-03] MEDS: HYOSCYAMINE SULFATE 0.125 MG SUBL TABLET PO SCH (10:42)
[2023-06-03] MEDS: MORPHINE 2 MG/ML 1ML VIAL IV PRN (11:07)
[2023-06-03] MEDS: ATROPINE SULFATE 1% OPHTH SOLN 2ML BTL SL SCH (12:34)
[2023-06-03] MEDS: MORPHINE 2 MG/ML 1ML VIAL IV SCH (17:50)
[2023-06-04] MEDS: LORazepam 2 MG/ML 1ML VIAL IV PRN (09:12)
== END 2023-06-05 06:20 | disposition expired | DRG 871 ==
LOC: M ED 06:08 → M ED INP 09:24 → M ICU 10:07 → M MSPAV 06-02 16:53
PROVIDERS: ADMIT Internal Medicine Critical Care Medicine; ATTEND Student in an Organized Health Care Education/Training Program
DX: A41.9 Sepsis, unspecified organism (principal); G93.41 Metabolic encephalopathy; J96.01 Acute respiratory failure with hypoxia; J15.69 Pneumonia due to other Gram-negative bacteria; I69.351 Hemiplegia and hemiparesis following cerebral infarction affecting right dominant side; N39.0 Urinary tract infection, site not specified; J90 Pleural effusion, not elsewhere classified; N17.9 Acute kidney failure, unspecified; D62 Acute posthemorrhagic anemia; K92.2 Gastrointestinal hemorrhage, unspecified; I69.321 Dysphasia following cerebral infarction; E03.9 Hypothyroidism, unspecified; I10 Essential (primary) hypertension; I48.91 Unspecified atrial fibrillation; L89.152 Pressure ulcer of sacral region, stage 2; B96.20 Unspecified Escherichia coli [E. coli] as the cause of diseases classified elsewhere; Z51.5 Encounter for palliative care; Z79.899 Other long term (current) drug therapy; Z79.01 Long term (current) use of anticoagulants; I69.361 Other paralytic syndrome following cerebral infarction affecting right dominant side; Z66 Do not resuscitate

== ENCOUNTER → 2023-06-03 | Outpatient (REF) | LOC: SKLAB4 09:55 | PROVIDERS: ATTEND Nurse Practitioner Family | DX: E03.9 Hypothyroidism, unspecified (principal); Z53.8 Procedure and treatment not carried out for other reasons ==